=== PATIENT | male | born 2000 | race Hispanic/Latino ===

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

== ENCOUNTER 2021-03-23 17:46 | Emergency (ER) | payer MEDICAID, OTHER ==
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
[2021-03-23 18:12] VITALS: BP 129/58
== END 2021-03-23 18:21 | disposition home or self-care (01) ==
LOC: ED 17:46
DX: Z02.89 Encounter for other administrative examinations (principal); J45.909 Unspecified asthma, uncomplicated
CPT/HCPCS: 99283